=== PATIENT | female | born 1985 | race Two or more races ===

== ENCOUNTER 2021-07-29 04:28 | Inpatient (IN) | payer OTHER ==
[2021-07-28 17:44] VITALS: BMI 26.6
[2021-07-29] MEDS ORDERED: PROPOFOL 20 ML ONE (07:24)
[2021-07-29] MEDS ORDERED: ROCURONIUM BROMIDE 50 MG/5 ML SYRINGE ONE (07:24)
[2021-07-29] MEDS ORDERED: BUPIVACAINE LIPOSOME/PF (EXPAREL) 266 MG/20 ML VIAL ONE (07:38)
[2021-07-29] MEDS ORDERED: BUPIVACAINE HCL/PF 0.5% (5MG/ML) 10 ML VIAL ONE (07:38)
[2021-07-29] MEDS ORDERED: MIDAZOLAM HCL 2 MG/2 ML SINGLE DOSE VIAL ONE ×2 (07:39)
[2021-07-29] MEDS ORDERED: HYDROmorphone HCl 2 MG/ML VIAL ONE (08:23)
[2021-07-29] MEDS ORDERED: NEOSTIGMINE METHYLSULFATE 0.5 MG/1 ML - 10 ML MDV ONE (10:01)
[2021-07-29] MEDS ORDERED: GLYCOPYRROLATE 0.2 MG/1 ML VIAL ONE (10:02)
[2021-07-29] MEDS ORDERED: ACETAMINOPHEN 325 MG TABLET (FP) PO PRN (10:21)
[2021-07-29] MEDS ORDERED: IBUPROFEN 800 MG/8 ML IJ IVPB PRN (10:21)
[2021-07-29] MEDS ORDERED: IBUPROFEN 600 MG TABLET (FP) PO PRN (10:25)
[2021-07-29] MEDS ORDERED: LACTATED RINGERS SOLUTION 1,000 ML/1,000 ML INFUS.BAG IV SCH (10:30)
[2021-07-29] MEDS ORDERED: ONDANSETRON 4 MG/2 ML VIAL IVPUSH PRN (10:51)
[2021-07-29] MEDS ORDERED: ACETAMINOPHEN 1000 MG/100 ML VIAL (NON FORMULARY) IVPB ONE (10:52)
[2021-07-29] MEDS ORDERED: ACETAMINOPHEN INJECTION 100 ML IVPB ONE (10:55)
[2021-07-29] MEDS: LACTATED RINGERS SOLUTION 1,000 ML IV SCH ×2 (13:30→14:03)
[2021-07-29] MEDS: oxyCODONE HCL 5 MG TABLET PO PRN ×2 (14:38→19:51)
[2021-07-29] MEDS: CEFAZOLIN 2 GM in DEXTROSE 5%-WATER - 100 ML IVPB SCH (17:24)
[2021-07-29] MEDS: oxyCODONE HCL 10 MG SUSTAINED ACTING TABLET PO SCH (21:27)
[2021-07-30] MEDS: CEFAZOLIN 2 GM in DEXTROSE 5%-WATER - 100 ML IVPB SCH (01:58)
[2021-07-30] MEDS: oxyCODONE HCL 5 MG TABLET PO PRN ×4 (02:06→17:17)
[2021-07-30] MEDS ORDERED: MORPHINE SULFATE 2 MG/ML VIAL IVPUSH PRN (08:20)
[2021-07-30 08:45] LABS: BASO % 0.8 % (0-2.0); EOS % 0.3 % (0-4.5); HEMATOCRIT 19.5 % (32.4-45.2); LYMPH % 21.7 % (8-40); MCH 25.1 pg (25.7-33.7); MEAN CELL VOLUME 78.4 fl (80-96); MEAN PLT VOLUME 8.2 fl (7.5-11.1); MONO % 9.5 % (3.8-10.2); NEUT % 67.7 % (42.8-82.8); PLATELET COUNT 314 10^3/uL (134-434); RBC 2.48 M/mm3 (3.60-5.2); RDW 18.1 % (11.6-15.6); WHITE BLOOD COUNT 10.4 K/mm3 (4.0-10.0)
[2021-07-30 08:57] LABS: HEMOGLOBIN 6.2 GM/dL (10.7-15.3)
[2021-07-30] MEDS: oxyCODONE HCL 10 MG SUSTAINED ACTING TABLET PO SCH ×2 (10:16→21:46)
[2021-07-30] MEDS: FERROUS SO4 325 MG TABLET (FP) PO SCH (16:44)
[2021-07-30] MEDS ORDERED: ONDANSETRON 4 MG/2 ML VIAL IVPUSH PRN (18:53)
[2021-07-30] MEDS ORDERED: DOCUSATE SODIUM 100 MG CAPSULE (FP) PO ONE (19:45)
[2021-07-31] MEDS: oxyCODONE HCL 5 MG TABLET PO PRN ×2 (02:01→08:30)
[2021-07-31 08:46] LABS: HEMATOCRIT 26.4 % (32.4-45.2); HEMOGLOBIN 8.7 GM/dL (10.7-15.3); MCH 26.7 pg (25.7-33.7); MCHC 33.1 g/dl (32.0-36.0); MEAN CELL VOLUME 80.7 fl (80-96); MEAN PLT VOLUME 8.2 fl (7.5-11.1); PLATELET COUNT 309 10^3/uL (134-434); RBC 3.28 M/mm3 (3.60-5.2); RDW 16.7 % (11.6-15.6); WHITE BLOOD COUNT 14.8 K/mm3 (4.0-10.0)
[2021-07-31] MEDS: SIMETHICONE 80 MG TAB.CHEW (FP) PO PRN ×2 (09:27→21:13)
[2021-07-31] MEDS: FERROUS SO4 325 MG TABLET (FP) PO SCH ×2 (09:27→18:44)
[2021-07-31] MEDS: oxyCODONE HCL 10 MG SUSTAINED ACTING TABLET PO SCH ×2 (11:27→21:13)
[2021-08-01] MEDS: oxyCODONE HCL 5 MG TABLET PO PRN (06:08)
[2021-08-01] MEDS: FERROUS SO4 325 MG TABLET (FP) PO SCH ×2 (08:02→18:57)
[2021-08-01] MEDS: oxyCODONE HCL 10 MG SUSTAINED ACTING TABLET PO SCH (11:33)
[2021-08-01 21:27] VITALS: BP 113/64; PULSE 76; TEMP 98.7
== END 2021-08-01 21:27 | disposition home or self-care (01) | DRG 519 ==
LOC: JASUSAT 04:28 → JASU-SURG 04:28 → J6S 13:57 → JASUSAT 13:58 → J6S 13:58
PROVIDERS: ADMIT Obstetrics & Gynecology; ATTEND Obstetrics & Gynecology
PROC: 0UB90ZZ Excision of Uterus, Open Approach (ICD-10-PCS; principal; 2021-07-29 08:00)
DX: D25.1 Intramural leiomyoma of uterus (principal); N92.0 Excessive and frequent menstruation with regular cycle; N80.0 Endometriosis of uterus; R10.2 Pelvic and perineal pain
CPT/HCPCS: 36415; 36430; 85025; 85027; 86850; 86900; 86901; 86922; 94760; J0131; P9058